=== PATIENT | female | born 1990 | race Caucasian/White ===

== ENCOUNTER → 2017-08-01 | Outpatient (CLI) | payer OTHER ==
[2017-08-02 13:53] LABS: EBV EARLY ANTIGEN AB <9.00 U/ML; EPSTEIN BARR VIR CAPSID IGG >750.00 U/ML
== END | disposition home or self-care (01) ==
LOC: C.LABPBG 10:12
PROVIDERS: ATTEND Physician Assistant
DX: J02.9 Acute pharyngitis, unspecified (principal)

== ENCOUNTER → 2017-08-03 | Outpatient (CLI) | payer OTHER ==
[2017-08-07 03:02] LABS: CHLAMYDIA TRACH RNA*** NOT DETECTED (NOT DETECTED); GC (NEIS GONORRHOEAE)RNA** NOT DETECTED (NOT DETECTED); TRICHOMONAS VAGINALIS RNA** NOT DETECTED (NOT DETECTED)
== END | disposition home or self-care (01) ==
LOC: C.LABSPEC 11:26
PROVIDERS: ATTEND Physician Assistant
DX: N89.8 Other specified noninflammatory disorders of vagina (principal); Z11.3 Encounter for screening for infections with a predominantly sexual mode of transmission

== ENCOUNTER → 2017-08-07 | Outpatient (CLI) | payer OTHER | END | disposition home or self-care (01) | LOC: C.PAPS 13:45 | PROVIDERS: ATTEND Physician Assistant | DX: Z12.4 Encounter for screening for malignant neoplasm of cervix (principal) ==

== ENCOUNTER → 2017-09-18 | Outpatient (CLI) | payer OTHER | END | disposition home or self-care (01) | LOC: C.LABSPEC 16:00 | PROVIDERS: ATTEND Physician Assistant | DX: L29.8 Other pruritus (principal) ==

== ENCOUNTER → 2017-10-19 | Outpatient (CLI) | payer OTHER | END | disposition home or self-care (01) | LOC: C.LABSPEC 17:18 | PROVIDERS: ATTEND Physician Assistant | DX: L29.8 Other pruritus (principal) ==

== ENCOUNTER → 2018-05-06 | Outpatient (CLI) | payer OTHER | END | disposition home or self-care (01) | LOC: C.LABSPEC 16:23 | PROVIDERS: ATTEND Obstetrics & Gynecology | DX: B37.9 Candidiasis, unspecified (principal) ==

== ENCOUNTER 2021-02-15 03:06 | Inpatient (IN) ==
[2021-02-15] MEDS ORDERED: OXYTOCIN 30 UNITS/500 ML BAG IV PRN ×3 (04:01→20:01)
--- NOTE | 2021-02-15 04:10 | History & Physical Report ---
Date of Service February 15, 2021 Assessment & Plan (1) Normal labor: IUP at 38+ weeks in early labor with SPROM of clear fluid GBS negative will ambulate for now epidural when requested anticipate vaginal History of Present Illness Primary Care Provider: Wendy Jefferson MD Patient is a 30 yo white female EDC 02/23/21 who presents at 38+ weeks with regular contractions and SPROM of clear fluid. otherwise has been uncomplicated. GBS negative Allergies Allergy/AdvReac Type Severity Reaction Status Date / Time Penicillins Allergy Hives Verified 02/15/21 03:32 Home Medications Medication Instructions Recorded Confirmed Type albuterol sulfate 90 mcg/actuation 2 puffs INH Q6H PRN #18 gm 03/14/20 02/15/21 Rx aerosol inhaler montelukast 10 mg tablet 10 mg PO DAILY #90 tab 06/04/20 02/15/21 Rx prenat.vits,holly,nnq-ndoc-yjnnq 1 tab PO DAILY 07/19/20 02/15/21 History omeprazole 40 mg capsule,delayed 40 mg PO DAILY #90 cap 08/11/20 02/15/21 Rx release Patient History Medical History Asthma uses inhaler PRN - last use 02/14/21 GERD (gastroesophageal reflux disease) History of chicken pox History of endometriosis History of ovarian cyst History of vaginal discharge Multiple allergies Prior miscarriage with , antepartum Recurrent candidiasis of vagina Unexplained weight gain Surgical History [place] teeth extracted (~2006) 2006 Family History Father Diabetes Mother Endometriosis Hypertension Sister Endometriosis Grandmother (Maternal) Endometriosis Grandfather Myocardial infarction Denies family history of Colon cancer Ovarian cancer Prostate cancer Breast cancer Social History Smoking Status: Never smoker Second Hand Exposure: No; Hx Alcohol Use: Yes Hx Substance Use: No Preferred Language: Sami Communication Ability: Effective Visual Impairment: No Limitations Hearing Ability: Normal Accounts Payable Supervisor Required: No Beliefs That Will Affect Care: None marital status: marital status details: Wilner Oviedo (34) [phone] Current Living Situation: Spouse Current Living Situation Comment: house with current occupational status: employed 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[employer] Other Information That Helps Us Care for You: No Feels Safe at Home: Yes Safety Concerns: Feels Safe At This Time Childhood Exposure to Second-Hand Smoke: No Dental Care, Regularly: Yes Physical Activity Frequency: 1-2 Times per Week Assistive Devices: None Review of Systems All systems reviewed & are unremarkable except as noted in HPI & below Physical Exam Constitutional: WD/WN, vitals as above Respiratory: normal respiratory effort, lungs clear to auscultation Cardiovascular: RRR, no murmur, no edema Gastrointestinal (Abdomen): normal bowel sounds, soft, nontender, no hepatosplenomegaly Psychiatric: A+Ox3, euthymic affect Genitourinary: OB Exam Abdomen: + vertex and + regular contractions Manual OB Exam: + cervical dilation 3 cm, + cervical effacement 60%, + station -2 and + amniotic fluid clear OB Exam Monitor Tracing: + external FHT monitor used, + external uterine monitor used, + category I and + normal FHT variability Results & Data ([facility]) Vital Signs (Past 12 Hours) Vital Signs Temp Pulse Resp BP 02/15/21 03:35 98.2 F 18 02/15/21 03:23 80 122/73 Coding Level of Care Code None Diagnoses Normal labor O80; Z37.9
[2021-02-15] MEDS ORDERED: ALBUTEROL HFA 8 GM INHALER INH PRN (04:24)
[2021-02-15] MEDS: LACTATED RINGER'S 1,000 ML IV PRN ×4 (04:26→17:04)
[2021-02-15] MEDS ORDERED: ePHEDrine sulfate 50 MG/ML AMP ONE (04:28)
[2021-02-15] MEDS ORDERED: fentaNYL citrate 100 MCG/2 ML VIAL ONE ×2 (04:28→10:29)
[2021-02-15] MEDS ORDERED: fentaNYL 2MCG/ML ROPIVACAINE 1.25MG/ML 100 ML BAG EPI ONE (04:28)
[2021-02-15] MEDS ORDERED: SODIUM CHLORIDE 0.9% INJ 10 ML VIAL ONE ×2 (04:28→10:30)
[2021-02-15] MEDS ORDERED: BUPIVACAINE 0.25% 30 ML VIAL ONE ×2 (04:28→10:28)
[2021-02-15 04:30] LABS: Hematocrit (blood only) 35.9 % (37-47); Hemoglobin 12.6 g/dL (12.0-16.0); Mean Corpuscular Hemoglobin 33.1 pg (25-34); Mean Corpuscular Hgb Conc 35.1 g/dL (32-36); Mean Corpuscular Volume 94.2 fL (80-100); Mean Platelet Volume 10.2 fL (7.4-10.4); Platelet Count 254 K/uL (130-400); RDW Coefficient of Variation 13.7 % (11.5-14.5); RDW Standard Deviation 47.2 fL (36.4-46.3); Red Blood Count 3.81 M/uL (4.2-5.4)
--- NOTE | 2021-02-15 05:25 | Anesthesiology Consultation ---
Date of Service February 15, 2021 Assessment & Plan ASA ASA2 Proposed Anesthesia Anesthesia Type: Labor Epidural Risk / Benefits Reviewed With: PT / POA / Parent / Guardian, Accepts Plan and Informed Consent Obtained History Height/Weight Height: 5 ft 4 in Weight: 85.275 kg Allergies Allergy/AdvReac Type Severity Reaction Status Date / Time Penicillins Allergy Hives Verified 02/15/21 03:32 Medications Home Medications Medication Instructions Recorded Confirmed Last Taken albuterol sulfate 90 mcg/actuation 2 puffs INH Q6H PRN #18 gm 03/14/20 02/15/21 02/14/21 08:00 aerosol inhaler montelukast 10 mg tablet 10 mg PO DAILY #90 tab 06/04/20 02/15/21 02/14/21 08:00 prenat.vits,holyl,wyf-wrdr-ihvih 1 tab PO DAILY 07/19/20 02/15/21 02/14/21 omeprazole 40 mg capsule,delayed 40 mg PO DAILY #90 cap 08/11/20 02/15/21 02/14/21 release Active Medications Generic Name Dose Route Start Last Admin Trade Name Freq PRN Reason Stop Dose Admin Lactated Ringer's 1,000 mls @ 125 mls/hr 02/15/21 04:01 02/15/21 04:26 Lr IV 02/17/21 04:00 999 mls/hr .Q8H PRN Administration L&D Protocol Protocol Past Medical History Medical History Asthma uses inhaler PRN - last use 02/14/21 GERD (gastroesophageal reflux disease) History of chicken pox History of endometriosis History of ovarian cyst History of vaginal discharge Multiple allergies Prior miscarriage with , antepartum Recurrent candidiasis of vagina Unexplained weight gain Exercise / Class Metabolic Activity II 4-5 Yardwork/Stairs/Walk up hill Past Family History Family History Father Diabetes Mother Endometriosis Hypertension Sister Endometriosis Grandmother (Maternal) Endometriosis Grandfather Myocardial infarction Denies family history of Colon cancer Ovarian cancer Prostate cancer Breast cancer Past Surgical History Surgical History [place] teeth extracted (~2006) 2006 Past Anesthesia History No Hx of Anesthesia Complications and No Family Hx of Anesthesia Complications History of PONV No Hx of PONV and No Hx of Motion Sickness Social History Smoking Status: Never smoker Hx Alcohol Use: Yes Hx Substance Use: No Review of Systems denies fever/cough/ colds/ chest pain/ SOB/ THIEN denies THIEN Physical Exam Vital Signs Last Vital Signs Temp 36.5 C 02/15/21 05:30 Pulse 85 02/15/21 05:47 Resp 18 02/15/21 05:30 BP 110/59 L 02/15/21 05:49 Pulse Ox 98 02/15/21 05:46 ENMT Mouth: no TMJ abnormality and no dentition abnormality Thyromental Distance: > or= 3.5 Finger Breadths Mallampati Class: II Neck neck extension not limited Respiratory normal respiratory effort; no respiratory distress Auscultation: lungs clear to auscultation bilaterally Cardiovascular Rate/Rhythm: regular rate and regular rhythm Neurologic moves all extremities Psychiatric Orientation: alert and oriented x 3 Testing Laboratory Results 02/15/21 04:22
[2021-02-15] MEDS ORDERED: NALOXONE HCL 0.4 MG/1 ML VIAL/CARP IV PRN (05:51)
[2021-02-15] MEDS ORDERED: ONDANSETRON INJ 2 MG/ML 2 ML VIAL IV PRN (05:51)
[2021-02-15] MEDS ORDERED: ePHEDrine sulfate 50 MG/ML AMP IV PRN (05:51)
[2021-02-15] MEDS ORDERED: diphenhydrAMINE 50 MG/ML VIAL IV PRN (05:51)
[2021-02-15] MEDS ORDERED: NALOXONE HCL 1 MG in SODIUM CHLORIDE 0.9% 1000ML 1,000 ML IV PRN (05:51)
--- NOTE | 2021-02-15 08:59 | Obstetrical Progress Note ---
Date of Service February 15, 2021 Assessment & Plan Admission and Anticipated Discharge Date Admission Date: February 15, 2021 contractions spacing out continues to leak small amount amniotic fluid will start pitocin augmentation of labor now. Subjective comfortable after epidural analgesia Review of Systems Review of Systems: All systems reviewed & are unremarkable except as noted in HPI & below Physical Exam Constitutional: WD/WN, vitals as above Psychiatric: A+Ox3, euthymic affect Genitourinary: OB Exam Abdomen: + vertex and + regular contractions (5-7 minutes- spacing out) Manual OB Exam: + cervical dilation 4 cm, + cervical effacement 90% and + station -2 OB Exam Monitor Tracing: + external FHT monitor used, + external uterine monitor used, + category I and + normal FHT variability Results & Data ([facility]) Vital Signs (Past 12 Hours) Vital Signs Temp Pulse Resp BP Pulse Ox 02/15/21 08:54 90 111/65 02/15/21 08:51 92 H 96 02/15/21 08:46 87 97 02/15/21 08:41 91 H 96 02/15/21 08:40 88 116/60 02/15/21 08:36 92 H 98 02/15/21 08:31 91 H 96 02/15/21 08:26 90 97 02/15/21 08:24 97 H 110/71 02/15/21 08:21 95 H 95 02/15/21 08:16 96 H 98 02/15/21 08:11 103 H 97 02/15/21 08:09 96 H 108/67 02/15/21 08:06 93 H 97 02/15/21 08:01 110 H 98 02/15/21 07:56 112 H 98 02/15/21 07:54 95 H 109/69 02/15/21 07:51 100 H 98 02/15/21 07:46 96 H 97 02/15/21 07:41 108 H 98 02/15/21 07:39 96 H 112/63 02/15/21 07:36 95 H 99 02/15/21 07:31 97 H 99 02/15/21 07:26 108 H 99 02/15/21 07:24 116/61 02/15/21 07:21 110 H 99 02/15/21 07:16 112 H 98 02/15/21 07:11 124 H 99 02/15/21 07:09 98.4 F 96 H 20 119/63 02/15/21 07:06 108 H 98 02/15/21 07:01 106 H 97 02/15/21 07:00 18 02/15/21 06:56 95 H 97 02/15/21 06:54 91 H 101/54 L 02/15/21 06:51 89 97 02/15/21 06:46 88 96 02/15/21 06:41 91 H 97 02/15/21 06:39 94 H 99/56 L 02/15/21 06:36 91 H 97 02/15/21 06:31 85 97 02/15/21 06:30 18 02/15/21 06:28 88 93 02/15/21 06:26 93 H 99 02/15/21 06:21 88 98 02/15/21 06:16 95 H 103/50 L 99 02/15/21 06:11 90 98 02/15/21 06:09 89 93 02/15/21 06:06 90 110/53 L 97 02/15/21 06:01 96 H 97 02/15/21 06:00 18 02/15/21 05:56 95 H 97 02/15/21 05:55 95 H 107/57 L 02/15/21 05:54 93 H 97/56 L 02/15/21 05:51 97 H 117/61 98 02/15/21 05:49 86 110/59 L 02/15/21 05:47 85 108/60 02/15/21 05:46 86 98 02/15/21 05:45 83 106/56 L 02/15/21 05:43 96 H 107/78 02/15/21 05:41 106 H 129/82 98 02/15/21 05:39 92 H 129/82 02/15/21 05:36 91 H 99 02/15/21 05:31 101 H 100 02/15/21 05:30 97.7 F 95 H 18 121/76 02/15/21 03:35 98.2 F 18 02/15/21 03:23 98.2 F 80 122/73 PG Care Time/CCT Total # of Minutes Spent Total Time Spent with Patient: Total time spent is greater than 50% in coordination of care (as documented) at patient's floor/unit and/or counseling patient: Coding Level of Care Code None
[2021-02-15] MEDS: MONTELUKAST SODIUM 10 MG TABLET PO SCH (09:07)
[2021-02-15] MEDS: PANTOprazole 40 MG TAB PO SCH (09:07)
--- NOTE | 2021-02-15 10:58 | Communication Note ---
Date of Service: February 15, 2021 Patient reported having increasing labor pain, worst in her RLQ. The epidural was bolused with 0.125% bupivacaine, 6mL total. The patient stated improved pain . VSS throughout.
[2021-02-15] MEDS: fentaNYL 2MCG/ML ROPIVACAINE 1.25MG/ML 100 ML BAG EPI PRN ×2 (11:41→17:01)
--- NOTE | 2021-02-15 13:35 | Labor Progress Brief Note ---
Date of Service February 15, 2021 Subjective Reason For Note: Routine Evaluation Assessment & Plan (1) Encounter for supervision in primigravida, antepartum: Labor progressing well (2) Normal labor: Admission and Anticipated Discharge Date Admission Date: February 15, 2021 Physical Exam Constitutional: WD/WN, vitals as above Genitourinary: normal external appearance OB Exam Abdomen: + vertex Manual OB Exam: + cervical dilation 8 cm, + cervical effacement 90% and + station 0 OB Exam Monitor Tracing: + external FHT monitor used, + external uterine monitor used, + category I and + normal FHT variability; no early decelerations present, no late decelerations present and no variable decelerations Results & Data ([facility]) Vital Signs (Past 12 Hours) Vital Signs Temp Pulse Resp BP Pulse Ox 02/15/21 13:26 116 H 97 02/15/21 13:25 111 H 116/69 02/15/21 13:21 107 H 96 02/15/21 13:16 121 H 97 02/15/21 13:11 112 H 127/68 99 02/15/21 13:09 101 H 90 02/15/21 13:06 104 H 98 02/15/21 13:01 95 H 96 02/15/21 12:57 93 H 109/62 02/15/21 12:56 92 H 98 02/15/21 12:51 92 H 96 02/15/21 12:48 94 H 94 02/15/21 12:46 92 H 97 02/15/21 12:41 105 H 96 02/15/21 12:40 90 110/59 L 02/15/21 12:36 91 H 97 02/15/21 12:31 91 H 97 02/15/21 12:26 93 H 104/59 L 97 02/15/21 12:21 90 98 02/15/21 12:20 36.9 C 20 02/15/21 12:16 104 H 98 02/15/21 12:11 102 H 96 02/15/21 12:10 100 H 20 126/68 02/15/21 12:06 97 H 95 02/15/21 12:01 103 H 96 02/15/21 11:56 98 H 95 02/15/21 11:55 104 H 127/62 02/15/21 11:51 103 H 95 02/15/21 11:46 102 H 97 02/15/21 11:45 108 H 93 02/15/21 11:41 96 H 122/65 97 02/15/21 11:36 94 H 96 02/15/21 11:31 94 H 96 02/15/21 11:29 97 H 94 02/15/21 11:26 96 H 95 02/15/21 11:24 100 H 20 121/60 02/15/21 11:21 95 H 95 02/15/21 11:16 96 H 95 02/15/21 11:11 101 H 96 02/15/21 11:10 94 H 115/61 02/15/21 11:06 100 H 95 02/15/21 11:01 36.9 C 99 H 20 95 02/15/21 10:58 36.8 C 18 02/15/21 10:56 99 H 95 02/15/21 10:55 90 120/68 02/15/21 10:51 97 H 95 02/15/21 10:46 108 H 98 02/15/21 10:41 95 H 97 02/15/21 10:40 98 H 114/64 02/15/21 10:36 106 H 96 02/15/21 10:35 92 H 104/56 L 02/15/21 10:31 100 H 96 02/15/21 10:26 100 H 97 02/15/21 10:25 88 104/54 L 02/15/21 10:21 98 H 96 02/15/21 10:16 92 H 96 02/15/21 10:11 97 H 95 02/15/21 10:06 97 H 95 02/15/21 10:01 93 H 20 96 02/15/21 09:56 101 H 97 02/15/21 09:51 93 H 97 02/15/21 09:46 87 98 02/15/21 09:41 101 H 97 02/15/21 09:40 95 H 94 02/15/21 09:36 98 H 95 02/15/21 09:31 96 H 97 02/15/21 09:26 95 H 97 02/15/21 09:21 92 H 96 02/15/21 09:16 93 H 97 02/15/21 09:15 93 H 86 L 02/15/21 09:11 84 97 02/15/21 09:06 95 H 97 05/04/21 09:01 36.7 C 87 20 95 02/15/21 08:56 88 97 02/15/21 08:54 90 111/65 02/15/21 08:51 92 H 96 02/15/21 08:46 87 97 02/15/21 08:41 91 H 96 02/15/21 08:40 88 116/60 02/15/21 08:36 92 H 98 02/15/21 08:31 91 H 96 02/15/21 08:26 90 97 02/15/21 08:24 97 H 110/71 02/15/21 08:21 95 H 95 02/15/21 08:16 96 H 98 02/15/21 08:11 103 H 97 02/15/21 08:09 96 H 108/67 02/15/21 08:06 93 H 97 02/15/21 08:01 110 H 98 02/15/21 07:59 20 02/15/21 07:56 112 H 98 02/15/21 07:54 95 H 109/69 02/15/21 07:51 100 H 98 02/15/21 07:46 96 H 97 02/15/21 07:41 108 H 98 02/15/21 07:39 96 H 112/63 02/15/21 07:36 95 H 99 02/15/21 07:31 97 H 99 02/15/21 07:26 108 H 99 02/15/21 07:24 116/61 02/15/21 07:21 110 H 99 02/15/21 07:16 112 H 98 02/15/21 07:11 124 H 99 02/15/21 07:09 36.9 C 96 H 20 119/63 02/15/21 07:06 108 H 98 02/15/21 07:01 106 H 97 02/15/21 07:00 18 02/15/21 06:56 95 H 97 02/15/21 06:54 91 H 101/54 L 02/15/21 06:51 89 97 02/15/21 06:46 88 96 02/15/21 06:41 91 H 97 02/15/21 06:39 94 H 99/56 L 02/15/21 06:36 91 H 97 02/15/21 06:31 85 97 02/15/21 06:30 18 02/15/21 06:28 88 93 02/15/21 06:26 93 H 99 02/15/21 06:21 88 98 02/15/21 06:16 95 H 103/50 L 99 02/15/21 06:11 90 98 02/15/21 06:09 89 93 02/15/21 06:06 90 110/53 L 97 02/15/21 06:01 96 H 97 02/15/21 06:00 18 02/15/21 05:56 95 H 97 02/15/21 05:55 95 H 107/57 L 02/15/21 05:54 93 H 97/56 L 02/15/21 05:51 97 H 117/61 98 02/15/21 05:49 86 110/59 L 02/15/21 05:47 85 108/60 02/15/21 05:46 86 98 02/15/21 05:45 83 106/56 L 02/15/21 05:43 96 H 107/78 02/15/21 05:41 106 H 129/82 98 02/15/21 05:39 92 H 129/82 02/15/21 05:36 91 H 99 02/15/21 05:31 101 H 100 02/15/21 05:30 36.5 C 95 H 18 121/76 02/15/21 03:35 36.8 C 18 02/15/21 03:23 36.8 C 80 122/73 Coding Level of Care Code None Diagnoses Encounter for supervision in primigravida, antepartum Z34.00 Normal labor O80; Z37.9
[2021-02-15] MEDS ORDERED: NURSING L&D Epidural Breakthrough Pain Update ONE (13:57)
[2021-02-15] MEDS ORDERED: DIPHTHERIA/TETANUS/PERTUSSIS 0.5 ML SYR/VIAL IM ONE (20:01)
[2021-02-15] MEDS ORDERED: BENZOCAINE 20% AER SPR 82.5 GM CAN EXT PRN (20:01)
[2021-02-15] MEDS ORDERED: SUPERCREAM 0.870% 15 GM JAR EXT PRN (20:01)
[2021-02-15] MEDS ORDERED: ACETAMINOPHEN 325 MG TAB PO PRN (20:01)
[2021-02-15] MEDS ORDERED: HYDROCORTISONE ACETATE 25 MG SUPP PR PRN (20:01)
[2021-02-15] MEDS ORDERED: bisacodyL 10 MG SUPP PR PRN (20:01)
--- NOTE | 2021-02-15 20:32 | Anesthesia Procedure Note ---
Date of Service February 15, 2021 Anesthesia Post Epidural Note Vital Signs Vital Signs: Temp Pulse Resp BP Pulse Ox 98.2 F 108 H 18 116/71 99 02/15/21 19:10 02/15/21 20:13 02/15/21 20:13 02/15/21 20:13 02/15/21 19:12 Notes Mental Status: alert / awake / arousable and participated in evaluation Nausea / Vomiting: adequately controlled Pain: adequately controlled Airway Patency, RR, SpO2: stable & adequate BP & HR: stable & adequate Hydration State: stable & adequate Neuraxial Anesthesia: was administered and sensory block is resolving Anesthetic Complications: no major complications apparent and Pt Satisfied with anesthetic care Epidural: Removed without complications and With tip intact
[2021-02-15] MEDS: IBUPROFEN 600 MG TAB PO PRN (21:14)
[2021-02-15] MEDS: DOCUSATE SODIUM 100 MG CAP PO SCH (21:15)
--- NOTE | 2021-02-16 03:41 | Delivery Summary ---
DATE OF OPERATION: 02/15/2021 PROCEDURE: Normal spontaneous vaginal delivery, second-degree laceration repair. SURGEON: Mike Barker MD PREOPERATIVE DIAGNOSES: 1. Single intrauterine at 38 weeks 6 days gestational age. 2. Labor with rupture of membranes. 3. GBS positive. POSTOPERATIVE DIAGNOSES: 1. Single intrauterine at 38 weeks 6 days gestational age. 2. Labor with rupture of membranes. 3. GBS positive. 4. Status post procedure. ESTIMATED BLOOD LOSS: 200 mL. DRAINS: Straight cath at the completion of the case. URINE OUTPUT: Straight catheterization. COMPLICATIONS: None. FINDINGS: Viable with weight and Apgars pending. DESCRIPTION OF PROCEDURE: The patient progressed to 10 cm dilated, 100% effaced, +2 station, pushed over intact perineum with epidural anesthesia and delivered a viable infant with weight and Apgars as noted above. Head of the delivered in YVONNE position, rest in right transverse. No nuchal cord was noted. Body and shoulders quickly followed. was noted to be vigorous soon after delivery and a 1-minute delayed cord clamping was initiated. Cord was then double clamped and cut. was taken to the nursery staff for further evaluation. A cord blood was then obtained. Attention was then turned to deliver of the placenta, which was delivered intact, 3-vessel cord, gentle cord traction. On inspection of perineum, vagina, and cervix noted a second-degree laceration, which was repaired with traditional crown stitch of 3-0 Vicryl. Needle, sponge and instrument counts were correct at the completion of the case with mother and stable in the immediate post-delivery period. I attest to the content of the Intraoperative Record and any orders documented therein. Any exception s are noted below.
[2021-02-16] MEDS: IBUPROFEN 600 MG TAB PO PRN ×4 (03:57→23:55)
--- NOTE | 2021-02-16 07:24 | Obstetrical Progress Note ---
Date of Service <Denis Plaza MD - Last Filed: 02/16/21 07:24> February 16, 2021 Assessment & Plan <Denis Plaza MD - Last Filed: 02/16/21 07:24> (1) Normal labor: A/P: Patient is a 30yo female on PPD#1 following at 38+6wga. * Patient feels well today; eating well, voiding well, ambulating well * Pain well-controlled with ibuprofen 600mg q4h prn * PNL: Rh pos, RI, GBS neg, COVID neg * Routine care: OOB, ambulation, diet progression as tolerated * After discharge, will have six-week follow-up with Dr. Barker Subjective <Denis Plaza MD - Last Filed: 02/16/21 07:24> Patient is a 30yo female on PPD#1 following at 38+6wga. This morning, patient feels well overall. Reports mild, crampy abdominal pain well- managed on analgesics. Tolerating PO intake without nausea or vomiting. Patient has been able to ambulate without lightheadedness or dizziness. Voiding well without difficulty. Lochia is gradually improving over time. Patient is . Review of Systems Denies fever, chills, CP, SOB, cough, breast pain, dysuria, leg pain, leg swelling, headache, and changes in vision. Physical Exam <Denis Plaza MD - Last Filed: 02/16/21 07:24> General: alert, oriented, no acute distress Cardiac: regular rate and rhythm, no murmur appreciated Respiratory: lungs clear to auscultation bilaterally a/p, no wheezes/rales/rho nchi, no increased work of breathing, symmetrical chest rise, no respiratory distress Abd: normal gravid abdomen, soft, minimally tender, BS present : uterine fundus firm, palpable at umbilicus LE: no lower extremity edema bilaterally; no deep calf pain, Mario Alberto's negative bilaterally Results & Data ([facility]) <Denis Plaza MD - Last Filed: 02/16/21 07:24> Vital Signs (Past 12 Hours) Vital Signs Temp Pulse Pulse Resp BP BP Pulse Ox 02/16/21 03:50 36.8 C 95 H 16 127/77 97 02/15/21 23:15 37.1 C 100 H 16 104/70 99 02/15/21 21:45 37.5 C 126 H 18 112/66 02/15/21 21:13 37.5 C 126 H 18 112/66 02/15/21 20:58 130 H 115/83 02/15/21 20:43 129 H 18 116/68 02/15/21 20:40 125 H 125/59 L 02/15/21 20:13 108 H 18 116/71 02/15/21 19:58 116 H 18 107/61 02/15/21 19:43 126 H 18 109/62 02/15/21 19:29 121 H 18 100/59 L <Mike Barker MD - Last Filed: 02/17/21 08:25> Co-Signing Physician Notes Patient seen and evaluated and agree with the above findings and plan. Routine OB care. Resident Activity Tracking <Denis Plaza MD - Last Filed: 02/16/21 07:24> Resident Involvement: Resident Care Provided Care Provided: OB Delivery
[2021-02-16] MEDS: PRENATAL VITAMIN 1 TAB PO SCH (08:29)
[2021-02-16] MEDS: DOCUSATE SODIUM 100 MG CAP PO SCH ×2 (08:29→20:20)
[2021-02-16] MEDS: FERROUS SULFATE 325 MG TAB PO SCH (08:29)
[2021-02-16] MEDS: MONTELUKAST SODIUM 10 MG TABLET PO SCH (08:58)
[2021-02-16] MEDS: PANTOprazole 40 MG TAB PO SCH (08:58)
[2021-02-16] MEDS ORDERED: bisacodyL 5 MG TABEC PO SCH (20:00)
[2021-02-17] MEDS: IBUPROFEN 600 MG TAB PO PRN ×2 (04:07→08:20)
--- NOTE | 2021-02-17 06:55 | Obstetrical Progress Note ---
Date of Service <Denis Plaza MD - Last Filed: 02/17/21 06:55> February 17, 2021 Assessment & Plan <Densi Plaza MD - Last Filed: 02/17/21 06:55> (1) Normal labor: A/P: Patient is a 30yo female on PPD#2 following at 38+6wga. * Patient feels well today; eating well, voiding well, ambulating well * Pain well-controlled with ibuprofen 600mg q4h prn * PNL: Rh pos, RI, GBS neg, COVID neg * Routine care: OOB, ambulation, diet progression as tolerated * After discharge, will have six-week follow-up with Dr. Barker Subjective <Denis Plaza MD - Last Filed: 02/17/21 06:55> Patient is a 30yo female on PPD#2 following at 38+6wga. This morning, patient feels well overall. Reports mild, crampy abdominal pain well- managed on analgesics. Tolerating PO intake without nausea or vomiting. Patient has been able to ambulate without lightheadedness or dizziness. Voiding well without difficulty. Lochia is gradually improving over time. Patient is . Denies fever, chills, CP, SOB, cough, breast pain, dysuria, leg pain, leg swelling, headache, and changes in vision. Physical Exam <Denis Plaza MD - Last Filed: 02/17/21 06:55> General: alert, oriented, no acute distress Cardiac: regular rate and rhythm, no murmur appreciated Respiratory: lungs clear to auscultation bilaterally a/p, no wheezes/rales/rhonchi, no increased work of breathing, symmetrical chest rise, no respiratory distress Abd: normal gravid abdomen, soft, minimally tender, BS present : uterine fundus firm, palpable at umbilicus LE: no lower extremity edema bilaterally; no deep calf pain, Mario Alberto's negative bilaterally Results & Data ([facility]) <Denis Plaza MD - Last Filed: 02/17/21 06:55> Vital Signs (Past 12 Hours) Vital Signs Temp Pulse Resp BP Pulse Ox 02/16/21 23:20 36.6 C 83 20 108/71 97 <Yanique B. Vitor, DO - Last Filed: 02/17/21 08:04> Co-Signing Physician Notes Resident Physician Supervision Note: I was present with Dr. Plaza during the history and exam. I discussed the case with the resident and agree with the findings and plan as documented in the note. Any exceptions or clarifications are listed here: PPD#2 doing well. DC home today, followup 6w. Reviewed DC instructions. Documented By: Yanique Adler DO Resident Activity Tracking <Denis Plaza MD - Last Filed: 02/17/21 06:55> Resident Involvement: Resident Care Provided Care Provided: OB Delivery
[2021-02-17] MEDS: FERROUS SULFATE 325 MG TAB PO SCH (08:21)
[2021-02-17] MEDS: PRENATAL VITAMIN 1 TAB PO SCH (08:21)
[2021-02-17] MEDS: DOCUSATE SODIUM 100 MG CAP PO SCH (08:21)
[2021-02-17] MEDS: MONTELUKAST SODIUM 10 MG TABLET PO SCH (08:22)
[2021-02-17] MEDS: PANTOprazole 40 MG TAB PO SCH (08:22)
== END 2021-02-17 11:52 | disposition home or self-care (01) | DRG 807 ==
LOC: OPB 03:06 → 4S1 03:11 → 4S2 22:10
DX: Z22.330 Carrier of Group B streptococcus; O70.1 Second degree perineal laceration during delivery; Z3A.38 38 weeks gestation of pregnancy; Z37.0 Single live birth

== ENCOUNTER 2022-07-21 00:59 | Inpatient (IN) ==
[2022-07-21] MEDS ORDERED: LIDOCAINE 1% LOCAL 20 ML VIAL INFIL PRN (01:13)
[2022-07-21] MEDS ORDERED: OXYTOCIN 30 UNITS/500 ML BAG IV PRN ×2 (01:13→02:05)
[2022-07-21] MEDS ORDERED: LACTATED RINGER'S 1,000 ML IV PRN (01:13)
[2022-07-21] MEDS ORDERED: OXYTOCIN 30 UNITS/500ML NSS ONE (01:27)
[2022-07-21] MEDS ORDERED: miSOPROStoL 200 MCG TAB PR ONE (02:05)
[2022-07-21] MEDS ORDERED: ACETAMINOPHEN 325 MG TAB PO PRN (02:05)
[2022-07-21] MEDS ORDERED: HYDROCORTISONE ACETATE 25 MG SUPP PR PRN (02:05)
[2022-07-21] MEDS ORDERED: DIPHTHERIA/TETANUS/PERTUSSIS 0.5 ML SYR/VIAL IM ONE (02:05)
[2022-07-21] MEDS ORDERED: BENZOCAINE 20% AER SPR 82.5 GM CAN EXT PRN (02:05)
[2022-07-21] MEDS ORDERED: miSOPROStoL 200 MCG TAB ONE (02:14)
[2022-07-21] MEDS: IBUPROFEN 600 MG TAB PO PRN ×3 (03:19→20:28)
[2022-07-21 06:37] LABS: Hematocrit (blood only) 32.9 % (34.1-44.9); Hemoglobin 11.2 g/dl (12.0-16.0); Mean Corpuscular Volume 91.1 fL (80.0-100.0); Platelet Count 253 K/uL (130-400); RDW Coefficient of Variation 13.8 % (11.5-14.5); RDW Standard Deviation 45.7 fL (36.4-46.3); Red Blood Count 3.61 M/uL (3.93-5.22)
--- NOTE | 2022-07-21 07:38 | Delivery Summary ---
DATE OF SERVICE: 07/21/2022 PROCEDURE: Normal spontaneous vaginal delivery. SURGEON: Mike Barker MD PREOPERATIVE DIAGNOSES: 1. Single intrauterine at 38 weeks 6 days gestational age. 2. Active labor. POSTOPERATIVE DIAGNOSES: 1. Single intrauterine at 38 weeks 6 days gestational age. 2. Active labor. 3. Status post procedure. ESTIMATED BLOOD LOSS: 300 mL. DRAINS: None. COMPLICATIONS: None. FINDINGS: Viable with weight and Apgars pending. INDICATIONS: The patient presented in active labor at 8 cm dilation. She rapidly progressed in labo r to complete-complete, +2 station, and pushed for approximately 10-15 minutes to achieve delivery. DESCRIPTION OF PROCEDURE: The patient progressed to 10 cm dilated, 100% effaced, positive 2 station, pushed over intact perineum without anesthesia and delivered a viable with weight and Apgars as noted above. Head of the delivered in YAO position, restituted to left transverse. No n uchal cord was noted. Body and shoulders quickly followed. was noted to be vigorous soon af ter delivery and a delayed cord clamping was initiated. Cord was then double clamped and cut. Neona te remained on the maternal abdomen. Cord blood was obtained. Attention was then turned to delivery of the placenta. Placenta was delivered intact, 3-vessel cord, gentle cord traction. On inspection of the perineum, vagina, cervix, there were noted to be no lacerations. Sponge and instrument count s were correct at the completion of the case with mother and stable in the immediate post-del xochilt period. Job ID: [id number]
[2022-07-21] MEDS: FERROUS SULFATE 325 MG TAB PO SCH (08:05)
[2022-07-21] MEDS: DOCUSATE SODIUM 100 MG CAP PO SCH ×2 (08:05→20:28)
[2022-07-21] MEDS: PRENATAL VITAMIN 1 TAB PO SCH (08:05)
--- NOTE | 2022-07-22 05:26 | Obstetrical Progress Note ---
Date of Service <Mckenna Aminbelendennis - Last Filed: 07/22/22 06:21> July 22, 2022 Assessment & Plan <Mckenna Aminbelendennis - Last Filed: 07/22/22 06:21> (1) care following vaginal delivery: Patient is PPD 1 s/p and doing well. - Eating well, voiding well, ambulating well - Vitals reviewed and within normal limits - Pain well controlled with analgesics - OOB, ambulation, diet progression as tolerated - Blood type: O+, GBS neg, rubella immune - Plan to discharge today - After discharge, [address] up [address] Barker <Briseyda Duval MD - Last Filed: 07/22/22 06:35> (1) care following vaginal delivery: Subjective <Mckenna Aminbelendennis - Last Filed: 07/22/22 06:21> Patient is a 31 yo female who is now PPD #1 following spontaneous vaginal delivery at 38+6 weeks. Reports feeling well this morning. She denies abdominal cramping and mild pain well managed on analgesics. Voiding without issue. Tolerating regular meals overnight and able to ambulate some. She has passed gas and had bowel movements. Persistent lochia with some improvement this morning. She describes that her bleeding has almost stopped. Currently breast feeding. Review of Systems Denies fever, chills, sweats. Denies SOB, difficulty breathing, chest pain, palpitations, and chest pressure. Denies breast pain. Denies dysuria. Denies headache or changes in vision. Physical Exam <Mckenna AminDO jessica - Last Filed: 07/22/22 06:21> General: Alert and oriented. No acute distress. CV: Regular rate and rhythm. No murmurs. Respiratory: CTA bilaterally. No rhonchi, wheezes, or crackles. No increased work of breathing. Abdomen: Positive bowel sounds. Soft, nontender, non distended. Uterus: Fundus firm and palpable 3 cm below the umbilicus. Lower extremities: No LE edema. No deep calf pain. Mario Alberto's negative bilaterally. Results & Data ([facility]) <Mckenna RossKey Alonso DO - Last Filed: 07/22/22 06:21> Vital Signs (Past 12 Hours) Vital Signs Temp Pulse Resp BP Pulse Ox O2 Del Method 07/21/22 23:04 36.7 C 70 18 109/67 97 Room Air 07/21/22 20:15 36.9 C 71 71 H 103/70 97 Room Air <Briseyda Duval MD - Last Filed: 07/22/22 06:35> Co-Signing Physician Notes Resident Physician Supervision Note: I interviewed and examined the patient. Discussed with Dr. Alonso and agree with findings and plan as documented in the note. Any exceptions or clarifications are listed here: [ ] Documented By: Briseyda Duval MD, FACOG Resident Activity Tracking <Mckenna Alonso DO - Last Filed: 07/22/22 06:21> Resident Involvement: Resident Care Provided Care Provided: OB Delivery
[2022-07-22 06:35] LABS: Hematocrit (blood only) 32.8 % (34.1-44.9)
[2022-07-22] MEDS: PRENATAL VITAMIN 1 TAB PO SCH (09:38)
[2022-07-22] MEDS: FERROUS SULFATE 325 MG TAB PO SCH (09:38)
[2022-07-22] MEDS: DOCUSATE SODIUM 100 MG CAP PO SCH ×2 (09:38→20:30)
[2022-07-22] MEDS ORDERED: bisacodyL 5 MG TABEC PO SCH (20:00)
[2022-07-22] MEDS: IBUPROFEN 600 MG TAB PO PRN (23:02)
[2022-07-23] MEDS ORDERED: bisacodyL 10 MG SUPP PR PRN
--- NOTE | 2022-07-23 08:23 | Obstetrical Progress Note ---
Date of Service July 23, 2022 Assessment & Plan (1) Encounter for care and examination after delivery: stable course will discharge today pending baby's status may need to go to [facility] status follow up in 6 weeks. Subjective Ambulation: ambulating normally Voiding: no voiding problems Passing Gas:: Yes Diet Tolerance:: regular diet Lochia:: Small Feeding Type:: breast feeding baby is Josiah (+) and needed further testing so discharge from yesterday was cancelled. Review of Systems All systems reviewed & are unremarkable except as noted in HPI & below Physical Exam Constitutional WD/WN, vitals as above Psychiatric A+Ox3, euthymic affect Genitourinary OB Exam Abdomen: + fundal height Fundus: + firm and + relation to umbilicus (2 below) Results & Data ([facility]) Vital Signs (Past 12 Hours) Vital Signs Temp Pulse Resp BP Pulse Ox O2 Del Method 07/23/22 07:38 98.1 F 80 20 121/76 07/22/22 22:56 98.2 F 77 18 112/73 98 Room Air 07/22/22 21:00 98.2 F 73 18 123/77 97 Room Air 07/22/22 21:00 Room Air
[2022-07-23] MEDS: DOCUSATE SODIUM 100 MG CAP PO SCH (08:46)
[2022-07-23] MEDS: PRENATAL VITAMIN 1 TAB PO SCH (08:46)
[2022-07-23] MEDS: FERROUS SULFATE 325 MG TAB PO SCH (08:46)
== END 2022-07-23 10:13 | disposition home or self-care (01) | DRG 807 ==
LOC: OPB 00:59 → 4S1 01:01 → 4E2 09:10
DX: Z3A.38 38 weeks gestation of pregnancy; O80 Encounter for full-term uncomplicated delivery; Z37.0 Single live birth